=== PATIENT | male | born 1970 | race Caucasian/White ===

== ENCOUNTER 2020-03-25 11:39 | Inpatient (IN) ==
[2020-03-25] MEDS ORDERED: *HR* LORazepam 2 MG/ML VIAL IVP PRN ×2 (12:15)
[2020-03-25] MEDS ORDERED: Ondansetron ODT 4 MG TAB.RAPDIS SL ONE (12:17)
[2020-03-25 12:32] LABS: VBG HCO3 15 mEq/L (21-27); VBG PCO2 26 mmHg (41-51); VBG PH 7.38 pH Units (7.32-7.42); VBG PO2 108 mmHg (25-50)
[2020-03-25 12:35] LABS: Basophils % 0.3 %; Hematocrit 41.5 % (37.5-50.1); Immature Granulocytes % 0.5 % (0-4); Lymphocytes # 0.2 K/mcL (0.6-4.6); Mean Corpuscular HGB Conc 33.7 g/dL (31.6-35.5); Mean Corpuscular Hemoglobin 31.7 pg (28.0-33.3); Mean Corpuscular Volume 93.9 fL (83.0-100.0); Mean Platelet Volume 9.4 fL (9.4-12.4); Monocytes # 0.4 K/mcL (0.0-1.3); Monocytes % 10.4 %; Neutrophils # 3.2 K/mcL (1.6-8.9); Platelet Count 106 K/mcL (140-400); Red Blood Count 4.42 M/mcL (4.19-5.50); Red Cell Distribution Width 16.2 % (11.5-14.5); Segmented Neutrophils % 82.8 %; White Blood Count 3.9 K/mcL (4.3-11.1)
[2020-03-25 12:57] LABS: Bilirubin,Urine Negative (Negative); Blood,Urine Moderate (Negative); Clarity,Urine Clear (Clear); Color,Urine Yellow (Yellow); Glucose,Urine (UA) Normal (Normal); Hyaline Casts,Urine Few per lpf (None Seen); Ketones,Urine >150 mg/dL (Negative); Leukocyte Esterase,Urine Negative (Negative); Mucus,Urine Few per lpf (None-Few); Nitrite,Urine Negative (Negative); PH,Urine 5.5 pH Units (5.0-8.0); Protein,Urine 100 mg/dL (Neg-Trace); RBC,Urine 0-3 per hpf (0-3); Specific Gravity,Urine 1.022 (1.010-1.025); Urobilinogen,Urine Normal (Normal); WBC,Urine 0-3 per hpf (0-3)
[2020-03-25] MEDS ORDERED: *HR* FentaNYL (PF) 100 MCG/2 ML VIAL IVP ONE (12:57)
[2020-03-25 13:03] LABS: Amphetamine Screen,Urine Negative ng/mL (Cutoff=1000); Barbiturate Screen,Urine Negative ng/mL (Cutoff=200); Benzodiazepines Screen,Urine Negative ng/mL (Cutoff=200); Cannabinoid Screen,Urine Negative ng/mL (Cutoff = 50); Cocaine Screen,Urine Negative ng/mL (Cutoff= 300); Opiate Screen,Urine Negative ng/mL (Cutoff=300); Phencyclidine Screen,Urine Negative ng/mL (Cutoff=25)
[2020-03-25 13:04] LABS: Acetaminophen < 10 mcg/mL (10-20); BUN/Creatinine Ratio 25 (6-26); Blood Urea Nitrogen 18 mg/dL (6-20); Calcium 7.8 mg/dL (8.6-10.3); Carbon Dioxide 13 mEq/L (23-29); Chloride 88 mEq/L (98-107); Chol/HDL Ratio 5.6 (0-4.9); Cholesterol 298 mg/dL (< 200); Ethanol 126 mg/dL (Less than 10); Glucose 131 mg/dL (70-105); HDL Cholesterol 53 mg/dL (40-59); Osmolality,Calculated 278 (280-300); Potassium 3.9 mEq/L (3.5-5.1); Salicylate < 2.5 mg/dL (15.0-30.0); Sodium 132 mEq/L (136-145); Triglycerides 534 mg/dL (< 150); eGFR For African Americans > 60 (> 60); eGFR For Non-African Americans > 60 (> 60)
[2020-03-25] MEDS: Thiamine (B-1) 100 MG TABLET PO SCH (13:14)
[2020-03-25] MEDS ORDERED: D5% in 0.9% NACL 1,000 ML IVC SCH (13:45)
[2020-03-25 14:03] LABS: Adenovirus Not Detected (Not Detect); Bordetella Pertussis Not Detected (Not Detect); Chlamydophila pneumoniae Not Detected (Not Detect); Coronavirus 229E Not Detected (Not Detect); Coronavirus HKU1 Not Detected (Not Detect); Coronavirus NL63 Not Detected (Not Detect); Coronavirus OC43 Not Detected (Not Detect); Human Metapneumovirus Not Detected (Not Detect); Human Rhinovirus/Enterovirus Not Detected (Not Detect); Influenza A Subtype 2009 H1 Not Detected (Not Detect); Influenza B Not Detected (Not Detect); Mycoplasma pneumoniae Not Detected (Not Detect); Parainfluenza Virus 1 Not Detected (Not Detect); Parainfluenza Virus 2 Not Detected (Not Detect); Parainfluenza Virus 3 Not Detected (Not Detect); Parainfluenza Virus 4 Not Detected (Not Detect); Respiratory Syncytial Virus Not Detected (Not Detect); SARS-CoV-2 Not Detected (Not Detect)
[2020-03-25] MEDS: Folic Acid 1 MG TABLET PO SCH (14:03)
[2020-03-25] MEDS: Vitamin B Complex/Vit C/Vit E 1 EACH TABLET PO SCH (14:04)
[2020-03-25] MEDS ORDERED: Naloxone 0.4 MG/ML INJ IVP PRN (14:11)
[2020-03-25 14:58] LABS: Estimated Average Glucose 140 mg/dl; Hemoglobin A1C 6.5 %
[2020-03-25] MEDS ORDERED: D5% in Water 1,000 ML IVC PRN (15:06)
[2020-03-25] MEDS ORDERED: *HR* Dextrose 50 % in Water (Vial) 50 ML VIAL IVP PRN (15:06)
[2020-03-25] MEDS ORDERED: Dextrose Gel 15 GM/37.5 ML TUBE PO PRN ×2 (15:06)
[2020-03-25] MEDS: Sodium Bicarbonate 150 MEQ in D5% in Water 1,000 ML IVC SCH (15:50)
[2020-03-25] MEDS ORDERED: Acetaminophen IV 500 MG/50 ML BAG IVPB ONE (17:23)
[2020-03-25] MEDS ORDERED: Ondansetron 4 MG/2 ML VIAL IVP ONE (17:24)
[2020-03-25] MEDS: *HR* Heparin 5,000 UNIT/ML VIAL SQ SCH (17:43)
[2020-03-25] MEDS: Insulin LISPRO 300 UNITS/3 ML VIAL SUBQ SCH ×2 (17:44→20:15)
[2020-03-25] MEDS: Nicotine 7 MG PATCH.TD24 TD SCH (19:31)
[2020-03-25] MEDS: *HR* LORazepam 2 MG/ML VIAL IVP PRN (19:52)
[2020-03-25] MEDS ORDERED: Morphine Sulfate 2 MG/ML SYRINGE IVP ONE (20:33)
[2020-03-25 23:35] LABS: Albumin 3.6 g/dL (3.5-5.7); Albumin/Globulin Ratio 1.6 (1.1-2.2); Bilirubin,Direct 1.9 mg/dL (0.0-0.2); Bilirubin,Indirect 1.6 mg/dL (0.0-1.0); Bilirubin,Total 3.5 mg/dL (0.3-1.0); Globulin 2.2 g/dL (2.4-3.5); Total Protein 5.8 g/dL (6.4-8.9)
[2020-03-25 23:36] LABS: BUN/Creatinine Ratio 25 (6-26); Blood Urea Nitrogen 18 mg/dL (6-20); Calcium 7.4 mg/dL (8.6-10.3); Carbon Dioxide 26 mEq/L (23-29); Chloride 87 mEq/L (98-107); Glucose 198 mg/dL (70-105); Osmolality,Calculated 281 (280-300); Potassium 3.4 mEq/L (3.5-5.1); Sodium 132 mEq/L (136-145); eGFR For African Americans > 60 (> 60); eGFR For Non-African Americans > 60 (> 60)
[2020-03-26] MEDS: Sodium Bicarbonate 150 MEQ in D5% in Water 1,000 ML IVC SCH (05:16)
[2020-03-26] MEDS: *HR* Heparin 5,000 UNIT/ML VIAL SQ SCH (05:17)
[2020-03-26 06:09] LABS: Basophils % 0.4 %; Eosinophils % 0.8 %; Hematocrit 34.9 % (37.5-50.1); Immature Granulocytes % 0.8 % (0-4); Lymphocytes # 0.4 K/mcL (0.6-4.6); Lymphocytes % 17.8 %; Mean Corpuscular Hemoglobin 31.7 pg (28.0-33.3); Mean Corpuscular Volume 90.6 fL (83.0-100.0); Mean Platelet Volume 10.1 fL (9.4-12.4); Monocytes # 0.2 K/mcL (0.0-1.3); Monocytes % 9.9 %; Neutrophils # 1.7 K/mcL (1.6-8.9); Nucleated Red Blood Cells 0.8 /100 WBC (0); Red Blood Count 3.85 M/mcL (4.19-5.50); Red Cell Distribution Width 15.7 % (11.5-14.5); Segmented Neutrophils % 70.3 %; White Blood Count 2.4 K/mcL (4.3-11.1)
[2020-03-26 06:11] LABS: Hemoglobin 12.2 g/dL (12.9-16.9); Platelet Count 86 K/mcL (140-400)
[2020-03-26 06:27] LABS: Alanine Aminotransferase 154 Units/L (7-52); Albumin 3.5 g/dL (3.5-5.7); Albumin/Globulin Ratio 1.8 (1.1-2.2); Alkaline Phosphatase 83 Units/L (34-104); Aspartate Amino Transferase 222 Units/L (13-39); BUN/Creatinine Ratio 27 (6-26); Bilirubin,Total 2.7 mg/dL (0.3-1.0); Blood Urea Nitrogen 18 mg/dL (6-20); Calcium 7.8 mg/dL (8.6-10.3); Carbon Dioxide 35 mEq/L (23-29); Chloride 85 mEq/L (98-107); Glucose 177 mg/dL (70-105); Osmolality,Calculated 278 (280-300); Potassium 2.9 mEq/L (3.5-5.1); Sodium 131 mEq/L (136-145); Total Protein 5.5 g/dL (6.4-8.9); eGFR For African Americans > 60 (> 60); eGFR For Non-African Americans > 60 (> 60)
[2020-03-26 06:47] LABS: Magnesium 1.8 mg/dL (1.6-2.6); Phosphorous < 1.0 mg/dL (2.7-4.5)
[2020-03-26] MEDS ORDERED: Potassium Phosphate 44 MEQ in 0.9 % Sodium Chloride 250 ML IVPB ONE (06:56)
[2020-03-26] MEDS: Folic Acid 1 MG TABLET PO SCH (07:47)
[2020-03-26] MEDS: Fenofibrate 54 MG TABLET PO SCH (07:47)
[2020-03-26] MEDS: Vitamin B Complex/Vit C/Vit E 1 EACH TABLET PO SCH (07:47)
[2020-03-26] MEDS: Thiamine (B-1) 100 MG TABLET PO SCH (07:47)
[2020-03-26] MEDS: Nicotine 7 MG PATCH.TD24 TD SCH (07:48)
[2020-03-26] MEDS: Insulin LISPRO 300 UNITS/3 ML VIAL SUBQ SCH ×4 (07:49→20:06)
[2020-03-26] MEDS ORDERED: Isovue-370 500 ML BOTTLE IVP ONE (08:51)
[2020-03-26] MEDS: 0.9 % Sodium Chloride 1,000 ML IVC SCH (09:27)
[2020-03-26 11:14] LABS: Hepatitis B Surface Antigen Nonreactive (Nonreactive)
[2020-03-26 11:43] LABS: Hepatitis A Antibody IgM Nonreactive (Nonreactive); Hepatitis B Core IgM Nonreactive (Nonreactive); Hepatitis C Virus Antibody Nonreactive (Nonreactive)
[2020-03-26] MEDS: Thiamine (B-1) 500 MG in 0.9 % Sodium Chloride 50 ML IVPB SCH ×3 (14:30→20:12)
[2020-03-26] MEDS ORDERED: Acetaminophen 325 MG TABLET PO ONE (14:45)
[2020-03-26] MEDS: Pantoprazole 40 MG VIAL IVP SCH (15:17)
[2020-03-26 16:09] LABS: BUN/Creatinine Ratio 27 (6-26); Blood Urea Nitrogen 15 mg/dL (6-20); Calcium 7.8 mg/dL (8.6-10.3); Carbon Dioxide 28 mEq/L (23-29); Chloride 90 mEq/L (98-107); Glucose 110 mg/dL (70-105); Osmolality,Calculated 275 (280-300); Phosphorous 2.4 mg/dL (2.7-4.5); Potassium 3.5 mEq/L (3.5-5.1); Sodium 132 mEq/L (136-145); eGFR For African Americans > 60 (> 60); eGFR For Non-African Americans > 60 (> 60)
[2020-03-26] MEDS: *HR* LORazepam 2 MG/ML VIAL IVP PRN (19:56)
[2020-03-27] MEDS: 0.9 % Sodium Chloride 1,000 ML IVC SCH ×2 (01:16→15:13)
[2020-03-27 03:13] LABS: Basophils % 0.6 %; Eosinophils # 0.1 K/mcL (0.0-0.6); Eosinophils % 2.4 %; Hematocrit 34.2 % (37.5-50.1); Hemoglobin 11.6 g/dL (12.9-16.9); Immature Granulocytes % 0.3 % (0-4); Immature Platelets 7.4 % (1.1-6.1); Lymphocytes # 0.8 K/mcL (0.6-4.6); Lymphocytes % 24.3 %; Mean Corpuscular HGB Conc 33.9 g/dL (31.6-35.5); Mean Corpuscular Hemoglobin 31.2 pg (28.0-33.3); Mean Corpuscular Volume 91.9 fL (83.0-100.0); Mean Platelet Volume 10.8 fL (9.4-12.4); Monocytes # 0.3 K/mcL (0.0-1.3); Monocytes % 8.3 %; Neutrophils # 2.2 K/mcL (1.6-8.9); Red Blood Count 3.72 M/mcL (4.19-5.50); Red Cell Distribution Width 15.8 % (11.5-14.5); Segmented Neutrophils % 64.1 %; White Blood Count 3.4 K/mcL (4.3-11.1)
[2020-03-27 03:16] LABS: Platelet Count 84 K/mcL (140-400)
[2020-03-27 03:32] LABS: Alanine Aminotransferase 152 Units/L (7-52); Albumin 3.3 g/dL (3.5-5.7); Albumin/Globulin Ratio 1.7 (1.1-2.2); Alkaline Phosphatase 89 Units/L (34-104); Aspartate Amino Transferase 251 Units/L (13-39); BUN/Creatinine Ratio 24 (6-26); Bilirubin,Total 2.4 mg/dL (0.3-1.0); Blood Urea Nitrogen 12 mg/dL (6-20); Calcium 7.9 mg/dL (8.6-10.3); Carbon Dioxide 29 mEq/L (23-29); Chloride 95 mEq/L (98-107); Glucose 93 mg/dL (70-105); Magnesium 1.8 mg/dL (1.6-2.6); Osmolality,Calculated 279 (280-300); Phosphorous 1.3 mg/dL (2.7-4.5); Sodium 135 mEq/L (136-145); Total Protein 5.3 g/dL (6.4-8.9); eGFR For African Americans > 60 (> 60); eGFR For Non-African Americans > 60 (> 60)
[2020-03-27] MEDS: Vitamin B Complex/Vit C/Vit E 1 EACH TABLET PO SCH (08:05)
[2020-03-27] MEDS: Folic Acid 1 MG TABLET PO SCH (08:05)
[2020-03-27] MEDS: Fenofibrate 54 MG TABLET PO SCH (08:05)
[2020-03-27] MEDS: Nicotine 7 MG PATCH.TD24 TD SCH (08:05)
[2020-03-27] MEDS: Pantoprazole 40 MG VIAL IVP SCH (08:05)
[2020-03-27] MEDS: Insulin LISPRO 300 UNITS/3 ML VIAL SUBQ SCH ×4 (08:06→21:27)
[2020-03-27] MEDS: Thiamine (B-1) 500 MG in 0.9 % Sodium Chloride 50 ML IVPB SCH ×3 (09:43→21:27)
[2020-03-27] MEDS ORDERED: Ketorolac 15 MG/ML VIAL IVP ONE (14:59)
[2020-03-27 15:03] LABS: INR 1.1; Prothrombin Time 12.5 Seconds (9.4-12.1)
[2020-03-27] MEDS ORDERED: Nicotine 21 MG PATCH.TD24 TD ONE (18:41)
[2020-03-28] MEDS: Acetaminophen 325 MG TABLET PO PRN (01:20)
[2020-03-28] MEDS: 0.9 % Sodium Chloride 1,000 ML IVC SCH ×2 (01:29→17:20)
[2020-03-28] MEDS: Nicotine 7 MG PATCH.TD24 TD SCH (08:55)
[2020-03-28] MEDS: Folic Acid 1 MG TABLET PO SCH (08:56)
[2020-03-28] MEDS: Vitamin B Complex/Vit C/Vit E 1 EACH TABLET PO SCH (08:56)
[2020-03-28] MEDS: Fenofibrate 54 MG TABLET PO SCH (08:56)
[2020-03-28] MEDS: Pantoprazole 40 MG VIAL IVP SCH (08:58)
[2020-03-28] MEDS: Insulin LISPRO 300 UNITS/3 ML VIAL SUBQ SCH ×4 (08:58→23:41)
[2020-03-28] MEDS ORDERED: Thiamine (B-1) 250 MG in 0.9 % Sodium Chloride 50 ML IVPB SCH (09:00)
[2020-03-28] MEDS: Thiamine (B-1) 200 MG in 0.9 % Sodium Chloride 50 ML IVPB SCH ×3 (09:01→20:18)
[2020-03-28 09:04] LABS: Basophils % 0.8 %; Eosinophils # 0.1 K/mcL (0.0-0.6); Eosinophils % 2.7 %; Hematocrit 38.9 % (37.5-50.1); Hemoglobin 13.1 g/dL (12.9-16.9); Immature Granulocytes % 0.4 % (0-4); Lymphocytes # 0.9 K/mcL (0.6-4.6); Lymphocytes % 18.1 %; Mean Corpuscular HGB Conc 33.7 g/dL (31.6-35.5); Mean Corpuscular Hemoglobin 31.9 pg (28.0-33.3); Mean Corpuscular Volume 94.6 fL (83.0-100.0); Mean Platelet Volume 10.4 fL (9.4-12.4); Monocytes # 0.4 K/mcL (0.0-1.3); Monocytes % 8.5 %; Neutrophils # 3.3 K/mcL (1.6-8.9); Red Blood Count 4.11 M/mcL (4.19-5.50); Red Cell Distribution Width 16.3 % (11.5-14.5); Segmented Neutrophils % 69.5 %; White Blood Count 4.8 K/mcL (4.3-11.1)
[2020-03-28 09:07] LABS: Platelet Count 94 K/mcL (140-400)
[2020-03-28 09:16] LABS: Alanine Aminotransferase 180 Units/L (7-52); Albumin 3.4 g/dL (3.5-5.7); Albumin/Globulin Ratio 1.6 (1.1-2.2); Alkaline Phosphatase 118 Units/L (34-104); Aspartate Amino Transferase 287 Units/L (13-39); BUN/Creatinine Ratio 30 (6-26); Bilirubin,Total 2.5 mg/dL (0.3-1.0); Blood Urea Nitrogen 13 mg/dL (6-20); Calcium 8.4 mg/dL (8.6-10.3); Carbon Dioxide 24 mEq/L (23-29); Chloride 102 mEq/L (98-107); Globulin 2.1 g/dL (2.4-3.5); Glucose 111 mg/dL (70-105); Magnesium 1.7 mg/dL (1.6-2.6); Osmolality,Calculated 283 (280-300); Potassium 3.6 mEq/L (3.5-5.1); Sodium 136 mEq/L (136-145); Total Protein 5.5 g/dL (6.4-8.9); eGFR For African Americans > 60 (> 60); eGFR For Non-African Americans > 60 (> 60)
[2020-03-29 04:24] LABS: Alanine Aminotransferase 177 Units/L (7-52); Albumin 3.4 g/dL (3.5-5.7); Albumin/Globulin Ratio 1.6 (1.1-2.2); Alkaline Phosphatase 134 Units/L (34-104); Aspartate Amino Transferase 217 Units/L (13-39); BUN/Creatinine Ratio 26 (6-26); Bilirubin,Total 1.7 mg/dL (0.3-1.0); Blood Urea Nitrogen 14 mg/dL (6-20); Calcium 8.5 mg/dL (8.6-10.3); Carbon Dioxide 25 mEq/L (23-29); Chloride 104 mEq/L (98-107); Globulin 2.1 g/dL (2.4-3.5); Glucose 161 mg/dL (70-105); Osmolality,Calculated 288 (280-300); Phosphorous 2.3 mg/dL (2.7-4.5); Potassium 3.4 mEq/L (3.5-5.1); Sodium 137 mEq/L (136-145); Total Protein 5.5 g/dL (6.4-8.9); eGFR For African Americans > 60 (> 60); eGFR For Non-African Americans > 60 (> 60)
[2020-03-29 06:32] LABS: Basophils # 0.1 K/mcL (0.0-0.2); Basophils % 1.1 %; Eosinophils # 0.1 K/mcL (0.0-0.6); Hematocrit 38.4 % (37.5-50.1); Hemoglobin 12.6 g/dL (12.9-16.9); Immature Granulocytes % 0.5 % (0-4); Immature Platelets 5.1 % (1.1-6.1); Lymphocytes # 1.1 K/mcL (0.6-4.6); Mean Corpuscular HGB Conc 32.8 g/dL (31.6-35.5); Mean Corpuscular Hemoglobin 30.7 pg (28.0-33.3); Mean Corpuscular Volume 93.4 fL (83.0-100.0); Mean Platelet Volume 9.8 fL (9.4-12.4); Monocytes # 0.7 K/mcL (0.0-1.3); Monocytes % 11.7 %; Neutrophils # 3.7 K/mcL (1.6-8.9); Platelet Count 139 K/mcL (140-400); Red Blood Count 4.11 M/mcL (4.19-5.50); Red Cell Distribution Width 16.7 % (11.5-14.5); Segmented Neutrophils % 65.7 %; White Blood Count 5.6 K/mcL (4.3-11.1)
[2020-03-29] MEDS: Insulin LISPRO 300 UNITS/3 ML VIAL SUBQ SCH ×4 (10:03→21:52)
[2020-03-29] MEDS: Vitamin B Complex/Vit C/Vit E 1 EACH TABLET PO SCH (10:19)
[2020-03-29] MEDS: Pantoprazole 40 MG VIAL IVP SCH (10:19)
[2020-03-29] MEDS: Folic Acid 1 MG TABLET PO SCH (10:19)
[2020-03-29] MEDS: Nicotine 7 MG PATCH.TD24 TD SCH (10:20)
[2020-03-29] MEDS: Fenofibrate 54 MG TABLET PO SCH (10:20)
[2020-03-29] MEDS: Thiamine (B-1) 200 MG in 0.9 % Sodium Chloride 50 ML IVPB SCH ×3 (10:21→23:09)
[2020-03-29] MEDS: Acetaminophen 325 MG TABLET PO PRN (10:27)
[2020-03-29] MEDS: 0.9 % Sodium Chloride 1,000 ML IVC SCH (23:19)
[2020-03-30 00:50] LABS: Basophils % 0.8 %; Eosinophils # 0.1 K/mcL (0.0-0.6); Eosinophils % 1.3 %; Hemoglobin 12.7 g/dL (12.9-16.9); Immature Granulocytes % 0.8 % (0-4); Lymphocytes # 1.1 K/mcL (0.6-4.6); Lymphocytes % 21.5 %; Mean Corpuscular HGB Conc 34.3 g/dL (31.6-35.5); Mean Corpuscular Hemoglobin 31.8 pg (28.0-33.3); Mean Corpuscular Volume 92.5 fL (83.0-100.0); Mean Platelet Volume 10.3 fL (9.4-12.4); Monocytes # 0.8 K/mcL (0.0-1.3); Neutrophils # 3.2 K/mcL (1.6-8.9); Platelet Count 157 K/mcL (140-400); Segmented Neutrophils % 60.6 %; White Blood Count 5.3 K/mcL (4.3-11.1)
[2020-03-30] MEDS: 0.9 % Sodium Chloride 1,000 ML IVC SCH ×2 (01:50→14:58)
[2020-03-30 02:23] LABS: Alanine Aminotransferase 154 Units/L (7-52); Albumin 3.3 g/dL (3.5-5.7); Albumin/Globulin Ratio 1.4 (1.1-2.2); Alkaline Phosphatase 140 Units/L (34-104); Aspartate Amino Transferase 141 Units/L (13-39); BUN/Creatinine Ratio 25 (6-26); Bilirubin,Total 1.2 mg/dL (0.3-1.0); Blood Urea Nitrogen 15 mg/dL (6-20); Calcium 8.9 mg/dL (8.6-10.3); Carbon Dioxide 24 mEq/L (23-29); Chloride 103 mEq/L (98-107); Globulin 2.3 g/dL (2.4-3.5); Glucose 166 mg/dL (70-105); Magnesium 1.6 mg/dL (1.6-2.6); Osmolality,Calculated 289 (280-300); Potassium 3.6 mEq/L (3.5-5.1); Sodium 137 mEq/L (136-145); Total Protein 5.6 g/dL (6.4-8.9); eGFR For African Americans > 60 (> 60); eGFR For Non-African Americans > 60 (> 60)
[2020-03-30] MEDS: Vitamin B Complex/Vit C/Vit E 1 EACH TABLET PO SCH (09:09)
[2020-03-30] MEDS: Fenofibrate 54 MG TABLET PO SCH (09:09)
[2020-03-30] MEDS: Pantoprazole 40 MG VIAL IVP SCH (09:11)
[2020-03-30] MEDS: Nicotine 7 MG PATCH.TD24 TD SCH (09:11)
[2020-03-30] MEDS: Folic Acid 1 MG TABLET PO SCH (09:11)
[2020-03-30] MEDS: Insulin LISPRO 300 UNITS/3 ML VIAL SUBQ SCH ×4 (09:12→23:40)
[2020-03-30] MEDS: Thiamine (B-1) 200 MG in 0.9 % Sodium Chloride 50 ML IVPB SCH ×3 (11:33→19:53)
[2020-03-31] MEDS: 0.9 % Sodium Chloride 1,000 ML IVC SCH (05:18)
[2020-03-31 06:26] LABS: Basophils # 0.1 K/mcL (0.0-0.2); Basophils % 1.1 %; Eosinophils # 0.1 K/mcL (0.0-0.6); Eosinophils % 1.6 %; Hematocrit 35.9 % (37.5-50.1); Hemoglobin 12.1 g/dL (12.9-16.9); Immature Granulocytes % 0.9 % (0-4); Lymphocytes % 24.5 %; Mean Corpuscular HGB Conc 33.7 g/dL (31.6-35.5); Mean Corpuscular Hemoglobin 32.1 pg (28.0-33.3); Mean Corpuscular Volume 95.2 fL (83.0-100.0); Monocytes # 1.2 K/mcL (0.0-1.3); Monocytes % 21.9 %; Platelet Count 216 K/mcL (140-400); Red Blood Count 3.77 M/mcL (4.19-5.50); Red Cell Distribution Width 17.6 % (11.5-14.5); White Blood Count 5.5 K/mcL (4.3-11.1)
[2020-03-31 06:36] LABS: Lymphocytes # 1.4 K/mcL (0.6-4.6); Neutrophils # 2.8 K/mcL (1.6-8.9)
[2020-03-31 06:46] LABS: Alanine Aminotransferase 123 Units/L (7-52); Albumin 3.2 g/dL (3.5-5.7); Albumin/Globulin Ratio 1.4 (1.1-2.2); Alkaline Phosphatase 116 Units/L (34-104); Aspartate Amino Transferase 92 Units/L (13-39); BUN/Creatinine Ratio 22 (6-26); Blood Urea Nitrogen 14 mg/dL (6-20); Calcium 8.5 mg/dL (8.6-10.3); Carbon Dioxide 25 mEq/L (23-29); Chloride 105 mEq/L (98-107); Globulin 2.3 g/dL (2.4-3.5); Glucose 223 mg/dL (70-105); Osmolality,Calculated 293 (280-300); Potassium 3.4 mEq/L (3.5-5.1); Sodium 138 mEq/L (136-145); Total Protein 5.5 g/dL (6.4-8.9); eGFR For African Americans > 60 (> 60); eGFR For Non-African Americans > 60 (> 60)
[2020-03-31 07:27] LABS: Platelet Estimate Normal (Normal); Reactive Lymphocytes Present (Not Present)
[2020-03-31] MEDS: Fenofibrate 54 MG TABLET PO SCH (08:43)
[2020-03-31] MEDS: Folic Acid 1 MG TABLET PO SCH (08:43)
[2020-03-31] MEDS: Nicotine 7 MG PATCH.TD24 TD SCH (08:44)
[2020-03-31] MEDS: Vitamin B Complex/Vit C/Vit E 1 EACH TABLET PO SCH (08:44)
[2020-03-31] MEDS: Insulin LISPRO 300 UNITS/3 ML VIAL SUBQ SCH ×2 (08:45→11:31)
[2020-03-31] MEDS: Pantoprazole 40 MG VIAL IVP SCH (08:45)
[2020-03-31] MEDS: Acetaminophen 325 MG TABLET PO PRN (08:47)
[2020-03-31 11:54] VITALS: BP 117/72
== END 2020-03-31 16:48 | disposition other institution (70) | DRG 775 ==
LOC: EMEROOARM 11:39 → 3BNU 11:39 → SUATTDRO 14:47 → 3BNU 16:03
PROVIDERS: ADMIT Internal Medicine; ATTEND Internal Medicine